=== PATIENT | female | born 1980 | race Caucasian/White ===

== ENCOUNTER 2024-04-18 12:48 | Emergency (ER) | payer BC, SELFPAY ==
--- NOTE | ~2024-04-18 | XR_ITS ---
EXAMINATION: XR chest 2V DATE: 04/18/2024 13:42 INDICATION: Near syncope. TECHNIQUE: Frontal and lateral views of the chest were obtained. COMPARISON: None. FINDINGS: There is no pneumonia, pleural effusion, or pneumothorax. The heart size is normal. IMPRESSION: 1. No acute cardiopulmonary disease. Reviewed, dictated and finalized at location B. 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
[2024-04-18 13:24] VITALS: BP 116/69; PULSE 88; RESP 16; TEMP 36.3; O2SAT 99
--- NOTE | 2024-04-18 13:27 | ECG_ITS ---
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
--- NOTE | 2024-04-18 13:29 | ED.SYNCOPE ---
HPI - Syncope General Chief Complaint: Recheck/Abnormal Lab/Rx <Antoinette Mosquera APRN - Last Filed: 04/18/24 13:32> Stated Complaint: near syncope <Antoinette Mosquera APRN - Last Filed: 04/18/24 13:32> Time Seen by Provider: 04/18/24 13:20 <Antoinette Mosquera APRN - Last Filed: 04/18/24 13:32> Focused HPI: Patient is a 43-year-old female who presents to the ER with complaints of a near syncopal episode. She reports she has a history of diabetes and believes her blood sugar was low. Patient reports she has not been on any diabetic medication in a couple years due to her A1c being within normal limits. Patient reports she does not have a glucose meter anymore because she lost it. She reports when she was at work she started feeling faint, lightheaded, dizzy, and was reports vision changes. Patient endorses a slight headache now. She denies any other medical history pertinent to this ER visit. GENERAL: Well-appearing, well-nourished, and in no acute distress. HEAD: Normocephalic, atraumatic. CHEST: Clear to auscultation. ?No respiratory distress. HEART: Regular rate and rhythm.? NEURO: ?Alert and oriented x3. Patient screened in triage and initial orders placed.? ?Additional care and disposition to be based upon?diagnostic testing and treatment. <Antoinette Mosquera APRN - Last Filed: 04/18/24 13:32> History of Present Illness HPI narrative: Patient 33-year-old female who presents emergency department chief complaint of near-syncope. Patient reports that she has had issues of diabetes in the past and reports that she did not eat yesterday and reports that she started feeling lightheaded while she was at work the patient sat down felt foggy but drank some fluid and now is feeling better. <Jose Canas MD - Last Filed: 04/18/24 16:12> Related Data Allergies/Adverse Reactions: Allergies Allergy/AdvReac Type Severity Reaction Status Date / Time No Known Allergies Allergy Verified 04/18/24 13:27 <Antoinette Mosquera APRN - Last Filed: 04/18/24 13:32> Review of Systems Review of Systems: A 10 system review of systems was completed on the patient and is negative except for what is stated in the HPI. Nursing and ancillary documentation was reviewed. <Jose Canas MD - Last Filed: 04/18/24 16:12> Exam Narrative: GENERAL: Well-appearing, well-nourished, and in no acute distress. HEAD: Normocephalic, atraumatic. EYES: PERRLA and EOMI. ENT: Nares clear, no rhinorrhea or epistaxis. Mucous membranes moist. NECK: Supple. CHEST: Clear to auscultation. No respiratory distress. HEART: Regular rate and rhythm. No murmur heard. Normal peripheral pulses. ABDOMEN: Soft, nontender, nondistended, normal active bowel sounds. EXTREMITIES: Normal range of motion. No edema. SKIN: Warm, dry, no rash. NEURO: No focal deficits. Alert and oriented x3. PSYCH: Normal mood and affect. <Jose Canas MD - Last Filed: 04/18/24 16:12> Course Vital Signs Vital signs: Vital Signs Temperature 36.3 C L 04/18/24 13:24 Pulse Rate 88 04/18/24 13:24 Respiratory Rate 16 04/18/24 13:24 Blood Pressure 116/69 04/18/24 13:24 Pulse Oximetry 99 04/18/24 13:24 Oxygen Delivery Room Air 04/18/24 13:24 Temperature 36.3 C L 04/18/24 13:24 Pulse Rate 70 04/18/24 14:48 Respiratory Rate 18 04/18/24 14:48 Blood Pressure 140/54 L 04/18/24 14:48 Pulse Oximetry 96 04/18/24 14:48 Oxygen Delivery Room Air 04/18/24 13:24 <Antoinette Mosquera APRN - Last Filed: 04/18/24 13:32> Vital Signs Temperature 36.3 C L 04/18/24 13:24 Pulse Rate 88 04/18/24 13:24 Respiratory Rate 16 04/18/24 13:24 Blood Pressure 116/69 04/18/24 13:24 Pulse Oximetry 99 04/18/24 13:24 Oxygen Delivery Room Air 04/18/24 13:24 Temperature 36.3 C L 04/18/24 13:24 Pulse Rate 70 04/18/24 14:48 Respiratory Rate 18 04/18/24 14:48 Blood Pressure 140/54 L 04/18/24 14:48 Pulse Oximetry 96 04/18/24 14:48 Oxygen Delivery Room Air 04/18/24 13:24 <Jose Canas MD - Last Filed: 04/18/24 16:12> MDM - Syncope MDM Narrative Medical decision making narrative: Differential diagnosis includes UTI, electrolyte abnormality, dehydration, hyperglycemia Laboratory studies were obtained on the patient showed negative flu COVID RSV chest x-ray showed no focal infiltrate EKG showed no acute ischemic changes urinalysis showed trace ketones. Electrolytes showed a glucose of 160 urinalysis did show evidence 11-20 white blood cells in the urine and 2+ bacteria. The patient will be started on Keflex the patient was instructed to follow-up with her primary care provider <Jose Canas MD - Last Filed: 04/18/24 16:12> Lab Data Result diagrams: 04/18/24 14:20 04/18/24 14:20 <Antoinette Mosquera APRN - Last Filed: 04/18/24 13:32> Labs: Lab Results 04/18/24 04/18/24 04/18/24 Range/Units 13:56 14:20 14:37 WBC 10.7 H (4.5-10.0) K/mm3 RBC 5.00 (4.2-5.4) M/mm3 Hgb 13.7 (12.0-15.0) g/dL Hct 42.4 (37.0-47.0) % MCV 84.8 (80-100) fl MCH 27.4 (26-34) pg MCHC 32.3 (32-36) g/dl RDW 13.5 (11.5-14.5) % Plt Count 252 (150-375) k/mm3 MPV 11.0 H (7.4-10.4) fl Immature Gran % (Auto) 0.5 (0-0.5) % Neut % (Auto) 77.3 H (45.5-73.1) % Lymph % (Auto) 15.8 L (18.3-44.2) % [place] % (Auto) 4.8 (2.6-8.5) % Eos % (Auto) 1.2 (0-4.4) % Baso % (Auto) 0.4 (0.2-1.2) % Lymph # (Auto) 1.69 (0.9-3.2) K/mm3 [place] # (Auto) 0.5 (0.1-0.6) K/mm3 Eos # (Auto) 0.1 (0-0.3) K/mm3 Baso # (Auto) 0.0 (0.0-0.1) K/mm3 Abs Immat Gran (auto) 0.05 H (0.00-0.031) K/mm3 Absolute Neuts (auto) 8.3 H (1.3-6.7) K/mm3 Absolute Nucleated RBC 0.000 (0.0-0.012) K/mm3 Nucleated RBC % 0.0 (0.0-0.2) % PT 13.5 (11.1-14.7) Seconds INR 1.0 APTT 27.4 (22.3-36.8) Seconds Sodium 137 (137-145) mmol/L Potassium 4.1 (3.4-5.0) mmol/L Chloride 103 (98-107) mmol/L Carbon Dioxide 25 (22-30) mmol/L Anion Gap 9 (4-12) mmol/L BUN 13 (7-17) mg/dL Creatinine 0.54 L (0.7-1.0) mg/dL Estim Creat Clear Calc 167 ml/min Estimated GFR > 60 (59 - ) Glucose 160 H (65-110) mg/dL POC Capillary Glucose 183 H (65-105) mg/dl Calcium 9.0 (8.4-10.2) mg/dL Magnesium 1.9 (1.6-2.3) mg/dL Total Bilirubin 0.6 (0.2-1.3) mg/dL AST 20 (14-36) U/L ALT 15 (6-35) U/L Alkaline Phosphatase 42 (38-126) U/L Troponin I < 0.012 (0.000-0.034) ng/mL Total Protein 7.0 (6.3-8.2) g/dL Albumin 4.1 (3.5-5.1) g/dL Urine Color Yellow (Yellow) Urine Appearance Cloudy H (Clear) Urine pH 5.5 (5.0-9.0) Ur Specific [place] 1.035 (1.001-1.035) Urine Protein 1+ H (Negative) mg/dL Urine Glucose (UA) Negative (Negative) mg/dL Urine Ketones Trace H (Negative) mg/dL Ur Blood (Man) Negative (Negative) Urine Nitrate Negative (Negative) Urine Bilirubin Negative (Negative) Urine Urobilinogen 1.0 (<2.0) mg/dL Add Ur Microanalysis Reviewed Leukocyte Esterase Rfl Negative (Negative) SHARI/UL Urine RBC 0-2 (0-2) /hpf Urine WBC 11-20 H (0-3) /hpf Ur Squamous Epith Cells Many H (Few) /hpf Urine Bacteria 2+ H /hpf Urine Casts 0-2 Urine Mucus Present /lpf POC Urine HCG, Qual Negative (Negative) Influenza A (RT-PCR) Negative (Negative) Influenza B (RT-PCR) Negative (Negative) RSV (RT-PCR) Negative (Negative) SARS-CoV-2 RNA (RT-PCR) Negative (Negative) <Antoinette Mosquera, ELECTROCARDIOGRAM TECHNICIAN - Last Filed: 04/18/24 13:32> Lab Results 04/18/24 04/18/24 04/18/24 Range/Units 13:56 14:20 14:37 WBC 10.7 H (4.5-10.0) K/mm3 RBC 5.00 (4.2-5.4) M/mm3 Hgb 13.7 (12.0-15.0) g/dL Hct 42.4 (37.0-47.0) % MCV 84.8 (80-100) fl MCH 27.4 (26-34) pg MCHC 32.3 (32-36) g/dl RDW 13.5 (11.5-14.5) % Plt Count 252 (150-375) k/mm3 MPV 11.0 H (7.4-10.4) fl Immature Gran % (Auto) 0.5 (0-0.5) % Neut % (Auto) 77.3 H (45.5-73.1) % Lymph % (Auto) 15.8 L (18.3-44.2) % [place] % (Auto) 4.8 (2.6-8.5) % Eos % (Auto) 1.2 (0-4.4) % Baso % (Auto) 0.4 (0.2-1.2) % Lymph # (Auto) 1.69 (0.9-3.2) K/mm3 [place] # (Auto) 0.5 (0.1-0.6) K/mm3 Eos # (Auto) 0.1 (0-0.3) K/mm3 Baso # (Auto) 0.0 (0.0-0.1) K/mm3 Abs Immat Gran (auto) 0.05 H (0.00-0.031) K/mm3 Absolute Neuts (auto) 8.3 H (1.3-6.7) K/mm3 Absolute Nucleated RBC 0.000 (0.0-0.012) K/mm3 Nucleated RBC % 0.0 (0.0-0.2) % PT 13.5 (11.1-14.7) Seconds INR 1.0 APTT 27.4 (22.3-36.8) Seconds Sodium 137 (137-145) mmol/L Potassium 4.1 (3.4-5.0) mmol/L Chloride 103 (98-107) mmol/L Carbon Dioxide 25 (22-30) mmol/L Anion Gap 9 (4-12) mmol/L BUN 13 (7-17) mg/dL Creatinine 0.54 L (0.7-1.0) mg/dL Estim Creat Clear Calc 167 ml/min Estimated GFR > 60 (59 - ) Glucose 160 H (65-110) mg/dL POC Capillary Glucose 183 H (65-105) mg/dl Calcium 9.0 (8.4-10.2) mg/dL Magnesium 1.9 (1.6-2.3) mg/dL Total Bilirubin 0.6 (0.2-1.3) mg/dL AST 20 (14-36) U/L ALT 15 (6-35) U/L Alkaline Phosphatase 42 (38-126) U/L Troponin I < 0.012 (0.000-0.034) ng/mL Total Protein 7.0 (6.3-8.2) g/dL Albumin 4.1 (3.5-5.1) g/dL Urine Color Yellow (Yellow) Urine Appearance Cloudy H (Clear) Urine pH 5.5 (5.0-9.0) Ur Specific [place] 1.035 (1.001-1.035) Urine Protein 1+ H (Negative) mg/dL Urine Glucose (UA) Negative (Negative) mg/dL Urine Ketones Trace H (Negative) mg/dL Ur Blood (Man) Negative (Negative) Urine Nitrate Negative (Negative) Urine Bilirubin Negative (Negative) Urine Urobilinogen 1.0 (<2.0) mg/dL Add Ur Microanalysis Reviewed Leukocyte Esterase Rfl Negative (Negative) SHARI/UL Urine RBC 0-2 (0-2) /hpf Urine WBC 11-20 H (0-3) /hpf Ur Squamous Epith Cells Many H (Few) /hpf Urine Bacteria 2+ H /hpf Urine Casts 0-2 Urine Mucus Present /lpf POC Urine HCG, Qual Negative (Negative) Influenza A (RT-PCR) Negative (Negative) Influenza B (RT-PCR) Negative (Negative) RSV (RT-PCR) Negative (Negative) SARS-CoV-2 RNA (RT-PCR) Negative (Negative) <Jose Canas MD - Last Filed: 04/18/24 16:12> Discharge Plan Discharge Clinical Impression: Near syncope, UTI (urinary tract infection) <Antoinette Mosquera APRN - Last Filed: 04/18/24 13:32> Patient Disposition: Home, Self-Care <Antoinette Mosquera APRN - Last Filed: 04/18/24 13:32> Condition: Stable <Antoinette Mosquera APRN - Last Filed: 04/18/24 13:32> Instructions: Antibiotic Form, Urinary Tract Infection in Women (ED), Near Syncope (ED) <Antoinette Mosquera APRN - Last Filed: 04/18/24 13:32> Patient Language: Amharic <Antoinette Mosquera APRN - Last Filed: 04/18/24 13:32> Prescriptions: New cephalexin 500 mg capsule 500 mg PO Q12H 7 Days Qty: 14 0RF <Antoinette Mosquera APRN - Last Filed: 04/18/24 13:32> Follow-up/Referrals: Brandon,Karen Sagastume APRN [Primary Care Provider] - <Antoinette Mosquera APRN - Last Filed: 04/18/24 13:32> Time of Disposition: 16:12 <Antoinette Mosquera APRN - Last Filed: 04/18/24 13:32> 16:12 <Jose Canas MD - Last Filed: 04/18/24 16:12>
[2024-04-18 13:59] LABS: Glucose Point of Care 183 mg/dl (65-105)
[2024-04-18] MEDS: ACETAMINOPHEN 500 MG TABLET 1000 MG PO (14:18)
[2024-04-18 14:34] LABS: Basophils Percent Auto 0.4 % (0.2-1.2); Eosinophils Absolute Auto 0.1 K/mm3 (0-0.3); Eosinophils Percent Auto 1.2 % (0-4.4); Hematocrit 42.4 % (37.0-47.0); Hemoglobin 13.7 g/dL (12.0-15.0); Immature Granulocyte Absolute 0.05 K/mm3 (0.00-0.031); Immature Granulocyte Percent A 0.5 % (0-0.5); Lymphocytes Absolute Auto 1.69 K/mm3 (0.9-3.2); Lymphocytes Percent Auto 15.8 % (18.3-44.2); Mean Corpuscular HGB Conc 32.3 g/dl (32-36); Mean Corpuscular Hemoglobin 27.4 pg (26-34); Mean Corpuscular Volume 84.8 fl (80-100); Monocytes Absolute Auto 0.5 K/mm3 (0.1-0.6); Monocytes Percent Auto 4.8 % (2.6-8.5); Neutrophils Absolute Auto 8.3 K/mm3 (1.3-6.7); Neutrophils Percent Auto 77.3 % (45.5-73.1); Platelet Count Result 252 k/mm3 (150-375); Red Cell Distribution Width 13.5 % (11.5-14.5); White Blood Count 10.7 K/mm3 (4.5-10.0)
[2024-04-18 14:39] LABS: BEDSIDEPREGUCG Negative (Negative)
[2024-04-18 14:45] LABS: Prothrombin Time 13.5 Seconds (11.1-14.7)
[2024-04-18] MEDS: SODIUM CHLORIDE 0.9% IV 1,000 ML 999 ML IV CONT (14:45)
[2024-04-18 14:46] LABS: Partial Thromboplastin Time 27.4 Seconds (22.3-36.8)
[2024-04-18 14:48] VITALS: BP 140/54; PULSE 70; RESP 18; O2SAT 96
[2024-04-18 14:49] LABS: Alanine Aminotransferase 15 U/L (6-35); Albumin Level 4.1 g/dL (3.5-5.1); Alkaline Phosphatase 42 U/L (38-126); Anion Gap 9 mmol/L (4-12); Aspartate Amino Transferase 20 U/L (14-36); Bilirubin,Total 0.6 mg/dL (0.2-1.3); Blood Urea Nitrogen 13 mg/dL (7-17); Carbon Dioxide 25 mmol/L (22-30); Chloride 103 mmol/L (98-107); Estimated CRCL calculation 167 ml/min; Estimated Glomerular Filt Rate > 60; Glucose 160 mg/dL (65-110); Magnesium 1.9 mg/dL (1.6-2.3); Potassium 4.1 mmol/L (3.4-5.0); Sodium 137 mmol/L (137-145)
[2024-04-18 14:56] LABS: Add Urine Microscopic? YES; Appearance Urine Cloudy (Clear); Bacteria Urine 2+ /hpf; Bilirubin Urine Negative (Negative); Blood Urine Negative (Negative); Color Urine Yellow (Yellow); Glucose Urine UA Negative (Negative); Ketones Urine Trace mg/dL (Negative); Leukocyte Esterase Ur Negative LEU/UL (Negative); Mucus Urine Present /lpf; Need Manual Microscopic Reviewed; Nitrate Urine Negative (Negative); Non Pathogenic Casts 0-2; Protein Urine 1+ mg/dL (Negative); RBC Urine 0-2 /hpf (0-2); Specific Grav Ur 1.035 (1.001-1.035); Squamous Epithelial Cell Urine Many /hpf (Few); pH Urine 5.5 (5.0-9.0)
[2024-04-18 15:00] LABS: Troponin I < 0.012 ng/mL (0.000-0.034)
[2024-04-18 15:10] LABS: Influenza A QL RT-PCR Negative (Negative); Influenza B QL RT-PCR Negative (Negative); RSV RNA, RT-PCR Negative (Negative); SARS-CoV-2 RNA PCR Negative (Negative)
--- OUTSIDE RECORDS SUMMARY | 2024-04-19 06:07 | XMS_ITS | Data Portability ---
Author Organization [facility] ZAFARM[facility]on[facility] Haddad Address [address] [place] [address] Assessment No assessment recorded. Plan of Treatment Reminders Order Date Submit Date Provider Last Modified By Organization Details Last Modified Time Details Appointments None recorded. Lab glucose, fingerstic k, blood 2023 024 swati In-Office Order, Internal Use Only DO Not Attach Compendium DO Not Attach Compendium, Do Not Delete/merge, [id number] 4 12:06:07 HbA1c (hemoglobi n A1c), blood 2023 024 [facility], [address], [address], [place], [address], 4 11:12:45 microalbum in/creatin ine, mass ratio, urine 2023 024 [facility], [address], [address], [place], [address], 4 11:12:41 lipid panel, serum 2023 024 [facility], [address] [facility] [facility] [address], [address], [place], [address], 4 11:12:42 CMP, serum or plasma 2023 024 [facility], [address], [place], [address], 4 11:12:43 CBC w/ auto diff 2023 024 [facility], [address] [facility], [address], [place], [address], 4 11:12:46 TSH, ultra-sens itive, serum 2023 024 [facility], [address] [facility], [address], [place], [address], 4 11:12:44 Referral physical therapist referral 2023 024 [facility], [address], [place], [address], 4 13:00:51 weight management referral 2023 024 [facility] Giovanny Pelletier MD, [address] [place], [address], 4 12:50:39 Procedures nerve conduction study/EMG (PROC) - Bilateral upper arms 2023 [facility] Conduction Study, [address] , [address], [place], [address], 5 13:24:39 Surgeries None recorded. Imaging MAMMO, screening, bilateral - US ok if indicated 2023 024 [facility] Patient Access Centralized Scheduling, Centralized Scheduling, [address], [address], 5 12:05:10 XR, knee, 3 view 2023 024 [facility] ([facility]), [address], [address], 5 12:05:10 XR, knee, 3 view 2023 024 [facility] ([facility]), [address] , [place], [address], 5 12:05:10 Medication Orders naproxen 500 mg tablet 2023 024 [facility][id number], [address], [place], [id number], 4 12:06:19 aripiprazo le 10 mg tablet 2023 024 [id number], [address], [place], [id number], 4 11:58:17 Patient TargetsNo targets recorded. Patient Instructions Encounter Date Encounter Id Patient Instructions Last Modified By Organization Details Last Modified Time 02/28/2024 [id number] A healthy lifestyle: care instructions swati Not available 02/28/2024 12:06:07 carpal tunnel syndrome: exercises swati Not available 02/28/2024 12:06:07 carpal tunnel syndrome: care instructions swati Not available 02/28/2024 12:06:07 Reason for Referral Weight Management Referral f or Morbid obesity Referring Physician: Karen Gould [facility], Encounter Date: 02/28/2024 Physical Therapist Referral for Multiple joint pain Referring Physician: Karen Gould [facility], Encounter Date: 02/28/2024 Results Created Date Observation Date Name Description Value Unit Range Abnormal Flag Note LastModifiedBy Organization Detail LastModifiedTime 02/28/2002/29/2024 ALBUM IN/CR EAT FINA ROCHE UR creatinine, urine 242.7 mg/dL notest ab. Not Available [facility] ([facility]) [address] [facility] [address], [place], [address], 02/29/2024 11:12:41 12/04/20 24 02/29/2024 ALBUM IN/CR EAT RATIO , FINA Hoover UR albumin, urine 22.6 ug/mL notest ab. Not Available [facility] ([facility]) [address] [place], [address], 02/29/2024 11:12:41 02/28/20 24 02/29/2024 ALBUM IN/CR EAT RATIO , RANDO M UR alb/creat ratio 9 mg/g_ creat 0-29 Lyndsey l: 0 - 29 Moder ately incre ased: 30 - 300 Sever antonio incre ased: >300 Not Available [facility] ([facility]) [address] [place], [address], 02/29/2024 11:12:41 02/28/20 24 02/29/2024 LIPID PANEL cholesterol, total 175 mg/dL 100-19 9 Not Available [facility] ([facility]) [address] [place], [address], 02/29/2024 11:12:42 02/28/20 24 02/29/2024 LIPID PANEL triglyceride s 112 mg/dL 0-149 Not Available [facility] ([facility]) [address] [place], [address], 02/29/2024 11:12:42 02/28/20 24 02/29/2024 LIPID PANEL HDL cholesterol 36 mg/dL >39 below low normal Not Available [facility] ([facility]) [address] [place], [address], 02/29/2024 11:12:42 02/28/20 24 02/29/2024 LIPID PANEL VLDL cholesterol keo 20 mg/dL 5-40 Not Available [facility] ([facility]) [address] [place], [address], 02/29/2024 11:12:42 02/28/20 24 02/29/2024 LIPID PANEL LDL chol calc ([facility]) 119 mg/dL 0-99 above high normal Not Available [facility] ([facility]) [address] [facility] [place], [address], 02/29/2024 11:12:42 02/28/20 24 02/29/2024 COMP. METAB OLIC PANEL (14) glucose 98 mg/dL 70-99 Not Available [facility] ([facility]) [address] [place], [address], 02/29/2024 11:12:43 02/28/20 24 02/29/2024 COMP. METAB OLIC PANEL (14) BUN 9 mg/dL 6-24 Not Available [facility] ([facility]) [address] [place], [address], 02/29/2024 11:12:43 02/28/20 24 02/29/2024 COMP. METAB OLIC PANEL (14) creatinine 0.59 mg/dL 0.57-1 .00 Not Available [facility] ([facility]) [address] [facility], [place], [address], 02/29/2024 11:12:43 02/28/20 24 02/29/2024 COMP. METAB OLIC PANEL (14) eGFR 115 mL/mi n/1.7 3 >59 Not Available [facility] ([facility]) [address] [facility] [place], [address], 02/29/2024 11:12:43 02/28/20 24 02/29/2024 COMP. METAB OLIC PANEL (14) BUN/creatini ne ratio 15 9-23 Not Available [facility] ([facility]) [address] [facility] [place], [address], 02/29/2024 11:12:43 02/28/20 24 02/29/2024 COMP. METAB OLIC PANEL (14) sodium 140 mmol/ L 134-14 4 Not Available [facility] ([facility]) [address] [facility] [place], [address], 02/29/2024 11:12:43 02/28/20 24 02/29/2024 COMP. METAB OLIC PANEL (14) potassium 4.4 mmol/ L 3.5-5. 2 Not Available [facility] ([facility]) [address] [facility] [place], [address], 02/29/2024 11:12:43 02/28/20 24 02/29/2024 COMP. METAB OLIC PANEL (14) chloride 104 mmol/ L 96-106 Not Available [facility] ([facility]) [address] [facility], [place], [address], 02/29/2024 11:12:43 02/28/20 24 02/29/2024 COMP. METAB OLIC PANEL (14) carbon dioxide, total 24 mmol/ L 20-29 Not Available [facility] ([facility]) [address] [facility], [place], [address], 02/29/2024 11:12:43 02/28/20 24 02/29/2024 COMP. METAB OLIC PANEL (14) calcium 9.2 mg/dL 8.7-10 .2 Not Available [facility] ([facility]) [address] [facility], [place], [address], 02/29/2024 11:12:43 02/28/20 24 02/29/2024 COMP. METAB OLIC PANEL (14) protein, total 6.0 g/dL 6.0-8. 5 Not Available [facility] ([facility]) [address] [facility], [place], [address], 02/29/2024 11:12:43 02/28/20 24 02/29/2024 COMP. METAB OLIC PANEL (14) albumin 4.0 g/dL 3.9-4. 9 Not Available [facility] ([facility]) [address] [facility] [place], [address], 02/29/2024 11:12:43 02/28/20 24 02/29/2024 COMP. METAB OLIC PANEL (14) globulin, total 2.0 g/dL 1.5-4. 5 Not Available [facility] ([facility]) [address] [facility] [place], [address], 02/29/2024 11:12:43 02/28/20 24 02/29/2024 COMP. METAB OLIC PANEL (14) bilirubin, total 0.3 mg/dL 0.0-1. 2 Not Available [facility] ([facility]) [address] [facility] [place], [address], 02/29/2024 11:12:43 02/28/20 24 02/29/2024 COMP. METAB OLIC PANEL (14) alkaline phosphatase 54 IU/L 44-121 Not Available [facility] ([facility]) [address] [facility] [place], [address], 02/29/2024 11:12:43 02/28/20 24 02/29/2024 COMP. METAB OLIC PANEL (14) AST (SGOT) 12 IU/L 0-40 Not Available [facility] ([facility]) [address] [facility] [place], [address], 02/29/2024 11:12:43 02/28/20 24 02/29/2024 COMP. METAB OLIC PANEL (14) ALT (SGPT) 13 IU/L 0-32 Not Available [facility] ([facility]) [address] [place], [address], 02/29/2024 11:12:43 02/28/20 24 02/29/2024 TSH RFX ON ABNOR MAL TO FREE T4 TSH 1.470 uIU/m L 0.450- 4.500 Not Available [facility] ([facility]) [address] [place], [address], 02/29/2024 11:12:44 02/28/20 24 02/29/2024 HEMOG LOBIN A1C hemoglobin A1C 6.6 % 4.8-5. 6 above high normal Predi abete s: 5.7 - 6.4 Diabe kaitlin: >6.4 Glyce eduardo contr ol for adult s with diabe kaitlin: <7.0 Not Available [facility] ([facility]) [address] [facility], [place], [address], 02/29/2024 11:12:45 02/28/20 24 02/29/2024 CBC WITH DIFFE RENTI AL/PL ATELE T WBC 9.8 x10e3 /uL 3.4-10 .8 Not Available [facility] ([facility]) [address] [place], [address], 02/29/2024 11:12:46 02/28/20 24 02/29/2024 CBC WITH DIFFE RENTI AL/PL ATELE T RBC 4.89 x10e6 /uL 3.77-5 .28 Not Available [facility] ([facility]) [address] [place], [address], 02/29/2024 11:12:46 02/28/20 24 02/29/2024 CBC WITH DIFFE RENTI AL/PL ATELE T hemoglobin 13.2 g/dL 11.1-1 5.9 Not Available [facility] ([facility]) [address] [place], [address], 02/29/2024 11:12:46 02/28/20 24 02/29/2024 CBC WITH DIFFE RENTI AL/PL ATELE T hematocrit 42.2 % 34.0-4 6.6 Not Available [facility] ([facility]) [address] [place], [address], 02/29/2024 11:12:46 02/28/20 24 02/29/2024 CBC WITH DIFFE RENTI AL/PL ATELE T MCV 86 fL 79-97 Not Available [facility] ([facility]) [address] [place], [address], 02/29/2024 11:12:46 02/28/20 24 02/29/2024 CBC WITH DIFFE RENTI AL/PL ATELE T MCH 27.0 pg 26.6-3 3.0 Not Available [facility] ([facility]) [address] [facility], [place], [address], 02/29/2024 11:12:46 02/28/20 24 02/29/2024 CBC WITH DIFFE RENTI AL/PL ATELE T MCHC 31.3 g/dL 31.5-3 5.7 below low normal Not Available [facility] ([facility]) [address] [facility], [place], [address], 02/29/2024 11:12:46 02/28/20 24 02/29/2024 CBC WITH DIFFE RENTI AL/PL ATELE T RDW 13.0 % 11.7-1 5.4 Not Available [facility] ([facility]) [address] [facility], [place], [address], 02/29/2024 11:12:46 02/28/20 24 02/29/2024 CBC WITH DIFFE RENTI AL/PL ATELE T platelets 260 x10e3 /uL 150-45 0 Not Available [facility] ([facility]) [address] [facility], [place], [address], 02/29/2024 11:12:46 02/28/20 24 02/29/2024 CBC WITH DIFFE RENTI AL/PL ATELE T neutrophils 73 % notest ab. Not Available [facility] ([facility]) [address] [place], [address], 02/29/2024 11:12:46 02/28/20 24 02/29/2024 CBC WITH DIFFE RENTI AL/PL ATELE T lymphs 20 % notest ab. Not Available [facility] ([facility]) [address] [place], [address], 02/29/2024 11:12:46 02/28/20 24 02/29/2024 CBC WITH DIFFE RENTI AL/PL ATELE T monocytes 5 % notest ab. Not Available [facility] ([facility]) [address] [facility], [place], [address], 02/29/2024 11:12:46 02/28/20 24 02/29/2024 CBC WITH DIFFE RENTI AL/PL ATELE T eos 2 % notest ab. Not Available [facility] ([facility]) [address] [facility], [place], [address], 02/29/2024 11:12:46 02/28/20 24 02/29/2024 CBC WITH DIFFE RENTI AL/PL ATELE T basos 0 % notest ab. Not Available [facility] ([facility]) [address] [facility], [place], [address], 02/29/2024 11:12:46 02/28/20 24 02/29/2024 CBC WITH DIFFE RENTI AL/PL ATELE T neutrophils (absolute) 7.1 x10e3 /uL 1.4-7. 0 above high normal Not Available [facility] ([facility]) [address] [facility], [place], [address], 02/29/2024 11:12:46 02/28/20 24 02/29/2024 CBC WITH DIFFE RENTI AL/PL ATELE T lymphs (absolute) 1.9 x10e3 /uL 0.7-3. 1 Not Available [facility] ([facility]) [address] [place], [address], 02/29/2024 11:12:46 02/28/20 24 02/29/2024 CBC WITH DIFFE RENTI AL/PL ATELE T monocytes(ab solute) 0.5 x10e3 /uL 0.1-0. 9 Not Available [facility] ([facility]) [address] [facility], [place], [address], 02/29/2024 11:12:46 02/28/20 24 02/29/2024 CBC WITH DIFFE RENTI AL/PL ATELE T eos (absolute) 0.2 x10e3 /uL 0.0-0. 4 Not Available [facility] ([facility]) [address] [facility], [place], [address], 02/29/2024 11:12:46 02/28/20 24 02/29/2024 CBC WITH DIFFE RENTI AL/PL ATELE T baso (absolute) 0.0 x10e3 /uL 0.0-0. 2 Not Available [facility] ([facility]) [address] [facility], [place], [address], 02/29/2024 11:12:46 02/28/20 24 02/29/2024 CBC WITH DIFFE RENTI AL/PL ATELE T immature granulocytes 0 % notest ab. Not Available [facility] ([facility]) [address] [facility], [place], [address], 02/29/2024 11:12:46 02/28/20 24 02/29/2024 CBC WITH DIFFE RENTI AL/PL ATELE T immature grans (abs) 0.0 x10e3 /uL 0.0-0. 1 Not Available [facility] ([facility]) [address] [facility], [place], [address], 02/29/2024 11:12:46 02/28/20 24 02/28/2024 gluco se, finge rstic k, blood Blood Glucose: mg/dl 118 Not Available In-Off ice Order Internal Use Only DO Not Attach Compendium DO Not Attach Compendium, Do Not Delete/merge, [id number] 02/28/2024 11:28:02 04/08/19 25 04/08/2024 nerve condu ction study /EMG (PROC ) No observ ation record ed. [facility] PT, OT, Speech Therapy [address] , [place], [address], 04/15/2024 11:59:44 04/18/19 25 04/18/2024 imagi ng/di agnos tic resul t No observ ation record ed. [facility] [address], [place], [address], 04/18/2024 17:29:30 Result Notes None recorded. Problems Name Problem SNOMED Code Status Onset Date Resolution Date Notes Provider Name and Address Organization Details Recorded Time Diabetes mellitus 56430603 Active 024 Romelia Emigdio [facility] 11:20:27 Problem Notes None recorded. Procedures Surgical History None recorded. Imaging Results Imaging Date Name Status LastModified by Organiz ation Details LastModified Time 04/08/2024 nerve conduction study/EMG (PROC) completed [facility] PT, OT, Speech Therapy [address] [place], [address], 04/15/2024 11:59:44 04/18/2024 imaging/diagnos tic result active [facility] [address], [place], [address], 04/18/2024 17:29:30 Procedure Notes None recorded. Medical Equipment None Reported. Allergies No known drug allergies Medications Name Sig Start Date Stop Date Status Note LastModified by Organization Details LastModified Time metformin 500 mg tablet 02/27 completed Not Available Not Available Not Available ondansetron HCl 4 mg tablet 02/27 completed Not Available Not Available Not Available metronidazol e 250 mg tablet TAKE 2 TABLETS BY MOUTH TWICE DAILY 02/27 completed Not Available Not Available Not Available divalproex 500 mg tablet,delay ed release TAKE 1 TABLET BY MOUTH TWICE DAILY 02/27 completed Not Available Not Available Not Available ofloxacin 0.3 % ear drops INSTILL 10 DROPS TO RIGHT EAR DAILY FOR 7 DAYS 02/27 completed Not Available Not Available Not Available losartan 50 mg-hydrochlo rothiazide 12.5 mg tablet TAKE 1 TABLET BY MOUTH DAILY 02/27 completed Not Available Not Available Not Available glipizide 5 mg tablet 02/27 completed Not Available Not Available Not Available naproxen 500 mg tablet Take 1 tablet twice a day by oral route as needed for 30 days. active Not Available Not Available No t Available hydroxyzine pamoate 25 mg capsule 02/27 completed Not Available Not Available Not Available aripiprazole 10 mg tablet Take 1 tablet every day by oral route for 30 days. 2023 active Not Available Not Available Not Avai lable aripiprazole 20 mg tablet TAKE 1 TABLET BY MOUTH DAILY 02/27 completed Not Available Not Available Not Available nitrofuranto in monohydrate/ macrocrystal s 100 mg capsule TAKE 1 CAPSULE BY MOUTH TWICE DAILY AFTER MEALS 02/27 completed Not Available Not Available Not Available Ozempic 2 mg/dose (8 mg/3 mL) subcutaneous pen injector INJECT 2 MG UNDER THE SKIN EVERY 7 DAYS 02/27 completed Not Available Not Available Not Available Vitals Date Recorded Respiratory rate Provider Name a nd Address Organization Details Last Updated DateTime 02/28/2024 18 /min Romelia Villegasueroa [facility] 11:22:11 Date Recorded Body weight Provider Name an d Address Organization Details Last Updated DateTime 02/28/2024 645839.96 g Romelia Franklinoa [facility] 2023 11:24:54 Date Recorded Oxygen saturation Oxygen saturation in Arterial blood by Pulse oximetry Provider Name and Address Organization Details Last Updated DateTime 02/28/2024 97 % 97 % Romelianancy Franklinoa [facility] 02/28/2024 11:26:04 Date Recorded Heart rate Provider Name an d Address Organization Details Last Updated DateTime 02/28/2024 56 /min Romelia Beal [facility] 11:26:05 Date Recorded Body temperature Provider Name a nd Address Organization Details Last Updated DateTime 02/28/2024 98.1 [degF] Romelia Franklinoa [facility] 2023 11:26:30 Date Recorded Systolic blood pressure Diastolic blood pressure Provider Name and Address Organization Details Last Updated DateTime 02/28/2024 130 mm[Hg] 86 mm[Hg] Romelia Franklinoa [facility] 02/28/2024 11:25:51 Social History Question Answer Notes LastModified by Organizat ion Details LastModified Time Tobacco Smoking Status Never Smoker [place] 02/28/2024 11:21:11 What Is Your Level Of Alcohol Consumption? None [email or web address] Information not available 02/28/2024 What Is Your Level Of Caffeine Consumption? Occasional [email or web address] Information not available 02/28/2024 What Was The Date Of Your Most Recent Tobacco Screening? 02/28/2024 [email or web address] Information not available 02/28/2024 Do You Use Any Illicit Or Recreational Drugs? No [email or web address] Information not available 02/28/2024 Has Tobacco Cessation Counseling Been Provided? No [email or web address] Information not available 02/28/2024 Do You Or Have You Ever Used Any Other Forms Of Tobacco Or Nicotine? No [email or web address] Information not available 02/28/2024 Sex: Female Functional Status None recorded. Mental Status None recorded. Family History Relationship Description Onset Age of this Age Resolved Age Notes LastModified by Organization Details LastModified Time Father No current problems or disability [email or web address] Not available 06/2023 11:20:48 Mother No current problems or disability [email or web address] Not available 06/2023 11:20:48 Medical History Condition Response Coronary Artery Disease N Other N High Blood Pressure N Atrial Fibrillation N Kidney or Bladder Problems N Thyroid Problems N GI Problems N Depression N COPD N Blood Clots N Have you had a mammogram in the last yea r? N Skin Problems N Eating Disorder N Anemia N Heart Attack (NH) N Anxiety Disorder N Diabetes Y Muscle, Joint, or Bone Problems N Arthritis N Seizures/Epilepsy N Have you had a colonoscopy in the last 1 0 years? N Acid Reflux (GERD) N Cancer N Stroke N Asthma N Allergies N Have you had a PSA blood test in the las t year? N ADHD N Substance Abuse N High Cholesterol N Hepatitis N Liver Disease N Schizophrenia N Headaches N Osteoporosis N Heart Failure N Gynecological HistoryNo gynecological history recorded. Obstetrics History GPAL:G 0 P 0 0 0 0 Past Encounters Encounter ID Performer Location Encounter Start Date Encounter Closed Date Diagnosis/Indication Diagnosis SNOMED-CT Code Diagnosis ICD10 Code Diagnosis Note [id number] KAREN GOULD NP [facility] ([facility]) [address] [place] [address] 02/28/2024 10:42:31 03/05/2024 09:28:01 Morbid obesity 179713884 E66.01 Pt to begin to engage in the following: -Healthy sleep hygiene (phone put away at night, lights out, set bedtime with at least 8 hours sleep)-Exe rcise 30-60 min daily-Make healthy diet choices (Robert martinez)-Drin k only water or green tea Type 2 evan betes mellitus 04543229 E11.9 Last A1C:{{less than 7.0% 7-8% 8-9% great er than 9% not listed #}}Goal A1C less than:{{7.0 %* 8.0%}}C urrent Therapy:{{ metformin sulfonylur ea TZD SGL T-2 DDP-4 GLP-1 RA long-ac ting insulin ra pid/short- acting insulin di et and exercise #}} {{metformi n sulfonyl urea TZD S GLT-2 DDP- 4 GLP-1 RA long-ac ting insulin ra pid/short- acting insulin}} {{metformi n sulfonyl urea TZD S GLT-2 DDP- 4 GLP-1 RA long-ac ting insulin ra pid/short- acting insulin}} {{metformi n sulfonyl urea TZD S GLT-2 DDP- 4 GLP-1 RA long-ac ting insulin ra pid/short- acting insulin}}S tatin:{{ye s no* decl ined due to adverse reaction/a llergy dec lined}}ROLANDO /ARB:{{yes no* no due to negative nephropath y screening contraindi cated decl ined due to adverse reaction/a llergy dec lined}}Anthony t Exam:{{com pleted in the past 12 months-neg ative comp leted in the past 12 months-pos itive comp leted in the past 12 months- result unknown du e}}Nephrop athy Screening: {{complete d in the past 12 months- negative c ompleted in the past 12 months- positive d ue}}Pneumo vax 23:{{UTD D eclined No t given}}Eye Exam:{{com pleted in the last 12 months- negative c ompleted in the last 12 months- positive c ompleted per patient report due - recommende d annual dilated eye exam Pt has eye dotor #}}Patient Education: healthy diet: {{yes no}} exercise: {{yes no}} weight loss: {{yes no}} foot care: {{yes no}} complicati ons of uncontroll ed diabetes: {{yes no}} medication compliance : {{yes no}} Next Visit: {{1 2 3 4 5 6* 7 8 9 10 11 12} } {{week(s) month(s)*} } Paresthesi a of upper limb [id number] R20.2 Plan of care:-wear wrist splint at night-fely orosco physical therapy-fo llow up if worsening of symptoms and consider hand surgeon referral Depressive disorder [id number] F32.A Plan of care:-shane parker ariprazole 10mg po qd (I advised that I would only fill until psychiatry took over with script. I did advise to start at lower dose with considerat ion of dose titration since she has been off for approx 1 month since she ran out of script).-Helen bondsk CBC for medication monitoring / denies SI/HI-foll ow up with psychiatry -make appt with counselor- go to ER if SI/HI or worsening of symptoms occur.-fol low up in clinic in one month. Multiple joint pain 3567 8005 M25.50 Plan of care:-Obta in xray imaging and consider additional referral based on labs.-Fely orosco in physical therapy-Ut ilize Knee exercises- stop if more painful with exercise-S tart steroid and take NSAID PRN-Apply ice indirectly -Follow up in office for new or worsening of symptoms within two weeks. Screening mammography [id number] Z12.31 Health Concerns Section Related Observation LastModified by Organization Detai ls LastModified Time None Recorded Concern Status LastModified by Organization Details LastModified Time None Recorded Advance Directives Directive None Recorded Payers Encounter Date Sequence Insurance Name Policy Number Policy Cooper Covered Member ID Cooper Member ID Guarantor Name 02/28/2024 1 [employer] [employer] [place] 112 Elana Bright [id number] Elana Bright Notes Date Note Type Note Provider Name and Address Organization Details Recorded Time 02/28/2024 text/html The patient presents to the office for a routine office visit to establish care. She has a hx of smoking and recently stopped last week, DM2, bipolar depression, and multiple joint pain that has been ongoing. She stated that she ran out of her script for bipolar depression last month and has not been able to get a refill. She is trying to get a new appointment with psychiatry. She patient stated that she was previously taking taking medications for DM2 but stopped due to bad side effects (she was previously on ozempic and had stomach issues and felt like the dose for metformin was too strong). She stated that her bilateral knee joints have chronically been in pain. She denies additional symptoms or concerns. She denies SI/HI. KAREN GOULD NP Attn: [address] [place], [id number], [facility] 03/01/2024 11:59:25 OBGyn Episode No OBEpisode recorded.
== END 2024-04-18 16:51 | disposition home or self-care (01) ==
PROVIDERS: Registered Nurse; Emergency Provider Emergency Medicine; PCP Midwife
DX: R55 Syncope and collapse (principal); N39.0 Urinary tract infection, site not specified; E11.9 Type 2 diabetes mellitus without complications; Z20.822 Contact with and (suspected) exposure to COVID-19
CPT/HCPCS: 36415; 71046; 80053; 81001; 81025; 82948; 83735; 84484; 85025; 85610; 85730; 87637; 93005; 96360; 99284; A9270; J7030